=== PATIENT | female | born 1960 | race African-American/Black ===

== ENCOUNTER 2020-03-08 15:45 | Emergency (ER) | payer OTHER ==
[2020-03-08 15:49] VITALS: BP 165/82; PULSE 79; TEMP 97; BMI 29.2
== END 2020-03-08 16:51 | disposition home or self-care (01) ==
LOC: JERFT 15:45
DX: M25.531 Pain in right wrist (principal)
CPT/HCPCS: 73110-TC-RT-FY; 99283-25

== ENCOUNTER 2021-02-03 23:26 | Emergency (ER) | payer OTHER ==
[2021-02-03 23:36] VITALS: TEMP 98; BMI 28.6
[2021-02-04] MEDS ORDERED: ACETAMINOPHEN 1000 MG/100 ML VIAL IVPB ONE (00:19)
[2021-02-04] MEDS ORDERED: ACETAMINOPHEN 500 MG TABLET (FP) PO ONE (00:26)
[2021-02-04] MEDS ORDERED: ACETAMINOPHEN 325 MG TABLET (FP) ONE (00:27)
[2021-02-04] MEDS ORDERED: ACETAMINOPHEN 325 MG TABLET (FP) PO ONE (00:46)
[2021-02-04 01:58] VITALS: BP 176/88; PULSE 62
== END 2021-02-04 02:12 | disposition home or self-care (01) ==
LOC: JER 23:26
DX: G44.099 Other trigeminal autonomic cephalgias (TAC), not intractable (principal)
CPT/HCPCS: 70450-TC; 99284-25

== ENCOUNTER 2021-07-15 17:11 | Emergency (ER) | payer OTHER ==
[2021-07-15 17:38] VITALS: BP 159/90; PULSE 73; TEMP 98.1; BMI 28.1
== END 2021-07-15 20:25 | disposition home or self-care (01) ==
LOC: JERFT 17:11
DX: M79.652 Pain in left thigh (principal)
CPT/HCPCS: 93971-TC; 99284-25

== ENCOUNTER 2022-04-21 14:28 | Inpatient (IN) | payer OTHER ==
[2022-04-21] MEDS ORDERED: PIPERACILLIN/TAZOB 4.5 GM 4.5 GM in DEXTROSE 5%-WATER 100 ML IVPB ONE (15:41)
[2022-04-21] MEDS ORDERED: VANCOMYCIN 1 GM in D5W (PRE-DOCKED) 1,000 MG/250 ML IVPB ONE (15:41)
[2022-04-21] MEDS ORDERED: PIPERACILLIN/TAZOB 4.5 GM 4.5 GM/100 ML BAG IVPB ONE (15:47)
[2022-04-21] MEDS ORDERED: VANCOMYCIN/WATER FOR INJ (PEG) 1,000 MG/200 ML BAG IVPB ONE (16:22)
[2022-04-21 16:43] LABS: BASO % 0.4 % (0-2.0); HEMATOCRIT 35.3 % (32.4-45.2); HEMOGLOBIN 11.5 GM/dL (10.7-15.3); LYMPH % 30.8 % (8-40); MCH 26.3 pg (25.7-33.7); MCHC 32.7 g/dl (32.0-36.0); MEAN CELL VOLUME 80.4 fl (80-96); MEAN PLT VOLUME 8.8 fl (7.5-11.1); MONO % 6.4 % (3.8-10.2); NEUT % 61.4 % (42.8-82.8); PLATELET COUNT 315 10^3/uL (134-434); RBC 4.39 M/mm3 (3.60-5.2); RDW 14.1 % (11.6-15.6); WHITE BLOOD COUNT 9.1 K/mm3 (4.0-10.0)
[2022-04-21 17:10] LABS: ALBUMIN 3.4 g/dl (3.4-5.0); CALCIUM 9.5 mg/dL (8.5-10.1)
[2022-04-21 17:14] LABS: CREATININE 0.9 mg/dL (0.55-1.3)
[2022-04-21 17:15] LABS: BILIRUBIN,TOTAL 0.6 mg/dL (0.2-1); TOT PROT 7.4 g/dl (6.4-8.2)
[2022-04-21] MEDS ORDERED: LISINOPRIL 20 MG TABLET PO ONE (20:11)
[2022-04-21] MEDS ORDERED: ACETAMINOPHEN 500 MG TABLET (FP) PO PRN (21:22)
[2022-04-21] MEDS ORDERED: PIPERACILLIN/TAZOB 3.375 GM 3.375 GM in DEXTROSE 5%-WATER - 50 ML IVPB SCH (23:00)
[2022-04-21] MEDS: ATORVASTATIN CA 20 MG TABLET (FP) PO SCH (23:49)
[2022-04-21] MEDS ORDERED: INSULIN (NOVOLOG) ASPART 100 UNITS/ML 10ML VIAL ONE (23:55)
[2022-04-21] MEDS: INSULIN SLIDING SCALE (NOVOLOG) 1 VIAL SQ SCH (23:56)
[2022-04-22] MEDS ORDERED: PIPERACILLIN/TAZOB 3.375 GM 3.375 GM in DEXTROSE 5%-WATER - 50 ML IVPB SCH (00:01)
[2022-04-22 03:54] VITALS: BMI 29.1
[2022-04-22] MEDS: INSULIN SLIDING SCALE (NOVOLOG) 1 VIAL SQ SCH ×4 (07:00→22:36)
[2022-04-22 08:48] LABS: BASO % 0.4 % (0-2.0); EOS % 1.7 % (0-4.5); HEMATOCRIT 33.2 % (32.4-45.2); HEMOGLOBIN 10.9 GM/dL (10.7-15.3); LYMPH % 38.9 % (8-40); MCH 26.3 pg (25.7-33.7); MCHC 32.7 g/dl (32.0-36.0); MEAN CELL VOLUME 80.3 fl (80-96); MEAN PLT VOLUME 8.7 fl (7.5-11.1); MONO % 8.4 % (3.8-10.2); NEUT % 50.6 % (42.8-82.8); PLATELET COUNT 293 10^3/uL (134-434); RBC 4.14 M/mm3 (3.60-5.2); RDW 14.2 % (11.6-15.6); WHITE BLOOD COUNT 7.7 K/mm3 (4.0-10.0)
[2022-04-22] MEDS: VANCOMYCIN/WATER FOR INJ (PEG) 1,000 MG/200 ML BAG IVPB SCH ×2 (09:47→21:59)
[2022-04-22] MEDS: HYDROCHLOROTHIAZIDE 25 MG TABLET (FP) PO SCH (09:55)
[2022-04-22] MEDS: amLODIPine BESYLATE 5 MG TABLET (FP) PO SCH (09:55)
[2022-04-22] MEDS: ENOXAPARIN NA (PORCINE) 40 MG/0.4 ML DISP.SYRIN SQ SCH (09:55)
[2022-04-22] MEDS: SODIUM CHLORIDE 1,000 ML IV SCH (12:06)
[2022-04-22] MEDS ORDERED: LIDOCAINE HCL 2% (50ML VIAL) SQ ONE (13:45)
[2022-04-22] MEDS ORDERED: morphine SULFATE 4 MG/ML VIAL IVPUSH ONE (14:15)
[2022-04-22] MEDS ORDERED: ACETAMINOPHEN 500 MG TABLET (FP) PO PRN (14:40)
[2022-04-22] MEDS: ATORVASTATIN CA 20 MG TABLET (FP) PO SCH (22:00)
[2022-04-22] MEDS: traMADol HCL 50 MG TABLET PO PRN (22:01)
[2022-04-22] MEDS ORDERED: INSULIN (NOVOLOG) ASPART 100 UNITS/ML 10ML VIAL ONE (22:07)
[2022-04-23] MEDS: INSULIN SLIDING SCALE (NOVOLOG) 1 VIAL SQ SCH ×4 (06:57→21:35)
[2022-04-23] MEDS: VANCOMYCIN/WATER FOR INJ (PEG) 1,000 MG/200 ML BAG IVPB SCH ×2 (08:35→21:21)
[2022-04-23] MEDS: SODIUM CHLORIDE 1,000 ML IV SCH ×2 (08:35→13:20)
[2022-04-23] MEDS: HYDROCHLOROTHIAZIDE 25 MG TABLET (FP) PO SCH (09:12)
[2022-04-23] MEDS: amLODIPine BESYLATE 5 MG TABLET (FP) PO SCH (09:12)
[2022-04-23] MEDS: ENOXAPARIN NA (PORCINE) 40 MG/0.4 ML DISP.SYRIN SQ SCH (09:12)
[2022-04-23] MEDS ORDERED: INSULIN (NOVOLOG) ASPART 100 UNITS/ML 10ML VIAL ONE (11:18)
[2022-04-23] MEDS: POLYETHYLENE GLYCOL (HEALTHYLAX) 3350 17 GM PACKET PO SCH (13:21)
[2022-04-23] MEDS: DOCUSATE SODIUM 100 MG CAPSULE (FP) PO SCH ×2 (13:21→21:22)
[2022-04-23 17:17] LABS: BASO % 0.4 % (0-2.0); EOS % 1.5 % (0-4.5); HEMATOCRIT 35.2 % (32.4-45.2); HEMOGLOBIN 11.6 GM/dL (10.7-15.3); LYMPH % 28.4 % (8-40); MCH 25.8 pg (25.7-33.7); MCHC 32.9 g/dl (32.0-36.0); MEAN CELL VOLUME 78.5 fl (80-96); MEAN PLT VOLUME 8.5 fl (7.5-11.1); MONO % 7.9 % (3.8-10.2); NEUT % 61.8 % (42.8-82.8); PLATELET COUNT 328 10^3/uL (134-434); RBC 4.49 M/mm3 (3.60-5.2); RDW 13.8 % (11.6-15.6)
[2022-04-23 17:48] LABS: BLOOD UREA NITROGEN 17.3 mg/dL (7-18)
[2022-04-23 17:49] LABS: ALBUMIN 3.1 g/dl (3.4-5.0)
[2022-04-23 17:51] LABS: CREATININE 0.9 mg/dL (0.55-1.3)
[2022-04-23 17:53] LABS: BILIRUBIN,TOTAL 0.5 mg/dL (0.2-1); TOT PROT 7.2 g/dl (6.4-8.2)
[2022-04-23] MEDS ORDERED: POTASSIUM CHLORIDE ORAL LIQUID 20 MEQ/15 ML PO ONE (17:54)
[2022-04-23 18:11] LABS: MAGNESIUM 1.8 mg/dL (1.8-2.4)
[2022-04-23] MEDS: traMADol HCL 50 MG TABLET PO PRN (18:33)
[2022-04-23] MEDS: ATORVASTATIN CA 20 MG TABLET (FP) PO SCH (21:22)
[2022-04-24] MEDS: SODIUM CHLORIDE 1,000 ML IV SCH ×3 (00:28→16:13)
[2022-04-24] MEDS: traMADol HCL 50 MG TABLET PO PRN ×2 (01:39→06:32)
[2022-04-24] MEDS: DOCUSATE SODIUM 100 MG CAPSULE (FP) PO SCH ×3 (06:25→21:26)
[2022-04-24] MEDS: INSULIN SLIDING SCALE (NOVOLOG) 1 VIAL SQ SCH ×4 (06:31→21:35)
[2022-04-24] MEDS ORDERED: VANCOMYCIN/WATER 1250 MG 1,250 MG/250 ML BAG IVPB SCH (09:30)
[2022-04-24] MEDS ORDERED: oxyCODONE HCL 5 MG TABLET PO PRN ×3 (09:43→13:25)
[2022-04-24] MEDS: amLODIPine BESYLATE 5 MG TABLET (FP) PO SCH (10:07)
[2022-04-24] MEDS: HYDROCHLOROTHIAZIDE 25 MG TABLET (FP) PO SCH (10:07)
[2022-04-24] MEDS: ENOXAPARIN NA (PORCINE) 40 MG/0.4 ML DISP.SYRIN SQ SCH (10:08)
[2022-04-24] MEDS: SODIUM CHLORIDE IVPB SCH (11:34)
[2022-04-24] MEDS: DAPTOMYCIN IVPB SCH (11:34)
[2022-04-24] MEDS: POLYETHYLENE GLYCOL (HEALTHYLAX) 3350 17 GM PACKET PO SCH (12:08)
[2022-04-24] MEDS ORDERED: GABAPENTIN 100 MG CAPSULE PO ONE (15:01)
[2022-04-24] MEDS ORDERED: INSULIN (NOVOLOG) ASPART 100 UNITS/ML 10ML VIAL ONE ×2 (16:47→21:14)
[2022-04-24] MEDS: ACETAMINOPHEN 325 MG TABLET (FP) PO SCH (18:04)
[2022-04-25] MEDS: ACETAMINOPHEN 325 MG TABLET (FP) PO SCH ×4 (00:35→19:01)
[2022-04-25] MEDS: SODIUM CHLORIDE 1,000 ML IV SCH (05:40)
[2022-04-25] MEDS: DOCUSATE SODIUM 100 MG CAPSULE (FP) PO SCH ×3 (06:17→22:23)
[2022-04-25] MEDS: INSULIN SLIDING SCALE (NOVOLOG) 1 VIAL SQ SCH ×4 (06:23→22:23)
[2022-04-25] MEDS ORDERED: SODIUM CHLORIDE 1,000 ML IV SCH (08:50)
[2022-04-25] MEDS: ENOXAPARIN NA (PORCINE) 40 MG/0.4 ML DISP.SYRIN SQ SCH (09:54)
[2022-04-25] MEDS: SODIUM CHLORIDE IVPB SCH (09:54)
[2022-04-25] MEDS: DAPTOMYCIN IVPB SCH (09:54)
[2022-04-25] MEDS: HYDROCHLOROTHIAZIDE 25 MG TABLET (FP) PO SCH (09:54)
[2022-04-25] MEDS: amLODIPine BESYLATE 10 MG TABLET (FP) PO SCH (09:54)
[2022-04-25 10:51] LABS: BASO % 0.3 % (0-2.0); EOS % 0.4 % (0-4.5); HEMATOCRIT 32.5 % (32.4-45.2); HEMOGLOBIN 10.7 GM/dL (10.7-15.3); LYMPH % 19.8 % (8-40); MCH 25.4 pg (25.7-33.7); MEAN CELL VOLUME 77.2 fl (80-96); MEAN PLT VOLUME 8.6 fl (7.5-11.1); MONO % 10.5 % (3.8-10.2); PLATELET COUNT 314 10^3/uL (134-434); RBC 4.21 M/mm3 (3.60-5.2); RDW 13.8 % (11.6-15.6); WHITE BLOOD COUNT 9.7 K/mm3 (4.0-10.0)
[2022-04-25 11:56] LABS: CALCIUM 8.3 mg/dL (8.5-10.1)
[2022-04-25 11:57] LABS: ALBUMIN 2.7 g/dl (3.4-5.0); BLOOD UREA NITROGEN 8.4 mg/dL (7-18); CO2 26 mmol/L (21-32); GLUCOSE,RANDOM 153 mg/dL (74-106)
[2022-04-25 12:01] LABS: CREATININE 0.6 mg/dL (0.55-1.3); SGOT/AST 12 U/L (15-37); SGPT/ALT 9 U/L (13-61)
[2022-04-25 12:02] LABS: TOT PROT 6.5 g/dl (6.4-8.2)
[2022-04-25 12:03] LABS: ALK PHOS 54 U/L (45-117); BILIRUBIN,TOTAL 0.8 mg/dL (0.2-1)
[2022-04-25 12:20] LABS: CHLORIDE 103 mmol/L (98-107); SODIUM 138 mmol/L (136-145)
[2022-04-25 12:23] LABS: ANION GAP 9 MMOL/L (8-16)
[2022-04-25] MEDS ORDERED: POTASSIUM CHLORIDE ORAL LIQUID 20 MEQ/15 ML PO ONE (12:25)
[2022-04-25] MEDS: POLYETHYLENE GLYCOL (HEALTHYLAX) 3350 17 GM PACKET PO SCH (14:31)
[2022-04-25] MEDS: GABAPENTIN 100 MG CAPSULE PO SCH (14:31)
[2022-04-25] MEDS: KCL 10 MEQ IVPB 10 MEQ/100 ML INFUS.BAG IVPB SCH ×3 (14:31→22:23)
[2022-04-25] MEDS ORDERED: POTASSIUM CHLORIDE TABS 20 MEQ TABLET.ER (FP) PO ONE (20:50)
[2022-04-26] MEDS: ACETAMINOPHEN 325 MG TABLET (FP) PO SCH ×4 (00:23→17:35)
[2022-04-26] MEDS: KCL 10 MEQ IVPB 10 MEQ/100 ML INFUS.BAG IVPB SCH (00:26)
[2022-04-26] MEDS: INSULIN SLIDING SCALE (NOVOLOG) 1 VIAL SQ SCH ×4 (07:10→22:17)
[2022-04-26] MEDS: DOCUSATE SODIUM 100 MG CAPSULE (FP) PO SCH ×3 (07:23→22:17)
[2022-04-26] MEDS: ENOXAPARIN NA (PORCINE) 40 MG/0.4 ML DISP.SYRIN SQ SCH (09:20)
[2022-04-26] MEDS: GABAPENTIN 100 MG CAPSULE PO SCH (09:20)
[2022-04-26] MEDS: HYDROCHLOROTHIAZIDE 25 MG TABLET (FP) PO SCH (09:20)
[2022-04-26] MEDS: amLODIPine BESYLATE 10 MG TABLET (FP) PO SCH (09:20)
[2022-04-26] MEDS ORDERED: POLYETHYLENE GLYCOL (HEALTHYLAX) 3350 17 GM PACKET PO SCH (10:00)
[2022-04-26] MEDS: DAPTOMYCIN IVPB SCH (11:45)
[2022-04-26] MEDS: SODIUM CHLORIDE IVPB SCH (11:45)
[2022-04-26] MEDS ORDERED: LACTULOSE 20 GM/30 ML UDC (FOR ORAL USE ONLY) PO ONE (11:50)
[2022-04-26 11:52] LABS: BASO % 0.2 % (0-2.0); EOS % 0.6 % (0-4.5); HEMATOCRIT 35.3 % (32.4-45.2); HEMOGLOBIN 11.9 GM/dL (10.7-15.3); LYMPH % 22.7 % (8-40); MCHC 33.6 g/dl (32.0-36.0); MEAN CELL VOLUME 77.3 fl (80-96); MEAN PLT VOLUME 8.4 fl (7.5-11.1); MONO % 7.6 % (3.8-10.2); NEUT % 68.9 % (42.8-82.8); PLATELET COUNT 394 10^3/uL (134-434); RBC 4.57 M/mm3 (3.60-5.2); WHITE BLOOD COUNT 9.3 K/mm3 (4.0-10.0)
[2022-04-26] MEDS ORDERED: INSULIN (NOVOLOG) ASPART 100 UNITS/ML 10ML VIAL ONE (11:53)
[2022-04-26 12:46] LABS: CALCIUM 9.3 mg/dL (8.5-10.1)
[2022-04-26 12:48] LABS: BLOOD UREA NITROGEN 10.6 mg/dL (7-18); MAGNESIUM 2.2 mg/dL (1.8-2.4)
[2022-04-26 12:50] LABS: CREATININE 0.6 mg/dL (0.55-1.3)
[2022-04-26 12:52] LABS: BILIRUBIN,TOTAL 0.6 mg/dL (0.2-1); TOT PROT 7.4 g/dl (6.4-8.2)
[2022-04-26] MEDS: POLYETHYLENE GLYCOL (HEALTHYLAX) 3350 17 GM PACKET PO SCH ×2 (13:24→22:17)
[2022-04-26 23:20] VITALS: RESP 18
[2022-04-27] MEDS: ACETAMINOPHEN 325 MG TABLET (FP) PO SCH ×4 (01:08→19:47)
[2022-04-27] MEDS: POLYETHYLENE GLYCOL (HEALTHYLAX) 3350 17 GM PACKET PO SCH ×3 (06:12→22:11)
[2022-04-27] MEDS: DOCUSATE SODIUM 100 MG CAPSULE (FP) PO SCH ×3 (06:12→22:11)
[2022-04-27] MEDS: INSULIN SLIDING SCALE (NOVOLOG) 1 VIAL SQ SCH ×4 (06:12→22:11)
[2022-04-27 09:07] LABS: BASO % 0.7 % (0-2.0); EOS % 1.6 % (0-4.5); HEMATOCRIT 36.3 % (32.4-45.2); HEMOGLOBIN 11.7 GM/dL (10.7-15.3); LYMPH % 34.3 % (8-40); MCH 25.2 pg (25.7-33.7); MCHC 32.3 g/dl (32.0-36.0); MEAN PLT VOLUME 8.2 fl (7.5-11.1); NEUT % 56.4 % (42.8-82.8); PLATELET COUNT 444 10^3/uL (134-434); RBC 4.65 M/mm3 (3.60-5.2)
[2022-04-27 09:38] LABS: BLOOD UREA NITROGEN 14.4 mg/dL (7-18)
[2022-04-27 09:40] LABS: CREATININE 0.7 mg/dL (0.55-1.3)
[2022-04-27 09:42] LABS: ALBUMIN 3.1 g/dl (3.4-5.0)
[2022-04-27 09:44] LABS: CALCIUM 9.8 mg/dL (8.5-10.1)
[2022-04-27 10:07] LABS: BILIRUBIN,TOTAL 1.1 mg/dL (0.2-1)
[2022-04-27] MEDS: ENOXAPARIN NA (PORCINE) 40 MG/0.4 ML DISP.SYRIN SQ SCH (10:23)
[2022-04-27] MEDS: predniSONE 20 MG TABLET (UD) PO SCH (11:12)
[2022-04-27] MEDS: GABAPENTIN 100 MG CAPSULE PO SCH (11:12)
[2022-04-27] MEDS: HYDROCHLOROTHIAZIDE 25 MG TABLET (FP) PO SCH (11:13)
[2022-04-27] MEDS: amLODIPine BESYLATE 10 MG TABLET (FP) PO SCH (11:14)
[2022-04-27] MEDS ORDERED: INSULIN (NOVOLOG) ASPART 100 UNITS/ML 10ML VIAL ONE ×2 (11:43→17:27)
[2022-04-27] MEDS: SODIUM CHLORIDE IVPB SCH (13:36)
[2022-04-27] MEDS: DAPTOMYCIN IVPB SCH (13:36)
[2022-04-28] MEDS: ACETAMINOPHEN 325 MG TABLET (FP) PO SCH ×3 (00:40→11:56)
[2022-04-28] MEDS: POLYETHYLENE GLYCOL (HEALTHYLAX) 3350 17 GM PACKET PO SCH ×2 (06:57→15:04)
[2022-04-28] MEDS: DOCUSATE SODIUM 100 MG CAPSULE (FP) PO SCH ×2 (06:58→15:04)
[2022-04-28] MEDS: INSULIN SLIDING SCALE (NOVOLOG) 1 VIAL SQ SCH ×2 (06:59→12:15)
[2022-04-28] MEDS: ENOXAPARIN NA (PORCINE) 40 MG/0.4 ML DISP.SYRIN SQ SCH (09:50)
[2022-04-28] MEDS ORDERED: DAPTOMYCIN 500 MG in SODIUM CHLORIDE 50 ML IVPB SCH (10:00)
[2022-04-28] MEDS: amLODIPine BESYLATE 10 MG TABLET (FP) PO SCH (10:02)
[2022-04-28] MEDS: predniSONE 20 MG TABLET (UD) PO SCH (10:02)
[2022-04-28] MEDS: GABAPENTIN 100 MG CAPSULE PO SCH (10:02)
[2022-04-28] MEDS: HYDROCHLOROTHIAZIDE 25 MG TABLET (FP) PO SCH (10:02)
[2022-04-28] MEDS ORDERED: LACTOBACILLUS ACIDOPHILUS 1 TABLET PO SCH (11:30)
[2022-04-28] MEDS ORDERED: INSULIN (NOVOLOG) ASPART 100 UNITS/ML 10ML VIAL ONE (12:11)
[2022-04-28] MEDS ORDERED: CLINDAMYCIN HCL 150 MG CAPSULE (FP) PO SCH (14:00)
[2022-04-28 15:05] VITALS: BP 124/75; PULSE 66; TEMP 97.4
[2022-04-29] MEDS ORDERED: MULTIVITAMINS THER W-MINERALS COMBO TABLET (FP) PO SCH (10:00)
== END 2022-04-28 16:11 | disposition home or self-care (01) | DRG 603 ==
LOC: JER 14:28 → JERBED 16:21 → OBSVTOIN 18:00 → J8W 20:31
PROVIDERS: ADMIT Internal Medicine; ATTEND Nurse Practitioner Acute Care
PROC: 0X960ZZ Drainage of Right Upper Extremity, Open Approach (ICD-10-PCS; principal; 2022-04-22)
DX: L02.511 Cutaneous abscess of right hand (principal); L03.113 Cellulitis of right upper limb; G90.511 Complex regional pain syndrome I of right upper limb; I10 Essential (primary) hypertension; E11.9 Type 2 diabetes mellitus without complications; B95.62 Methicillin resistant Staphylococcus aureus infection as the cause of diseases classified elsewhere; M65.9 Synovitis and tenosynovitis, unspecified
CPT/HCPCS: 0241U-QW; 36415; 73090-TC-RT-FY; 73219-TC; 76882-TC-RT-FY; 80053; 82550; 82962; 83036; 83735; 84132; 85025; 85027; 85651; 86140; 87040; 87070; 87075; 87186; 87205; 93005; 93010; 97116-GP; 97161-GP; 99285-25; A9579; G0378; G0480; J0878

== ENCOUNTER 2023-02-18 09:40 | Emergency (ER) | payer OTHER ==
[2023-02-18 09:44] VITALS: BP 157/70; PULSE 62; RESP 18; TEMP 97.9; BMI 29.9
[2023-02-18] MEDS ORDERED: IBUPROFEN 400 MG TABLET (FP) PO ONE ×2 (11:05→11:50)
== END 2023-02-18 13:11 | disposition home or self-care (01) ==
LOC: JER 09:40 → JERFT 09:40
DX: S80.912A Unspecified superficial injury of left knee, initial encounter (principal); M25.561 Pain in right knee; M25.562 Pain in left knee; W19.XXXA Unspecified fall, initial encounter; Y99.0 Civilian activity done for income or pay
CPT/HCPCS: 73562-TC-LT-FY; 99283-25

== ENCOUNTER → 2024-06-19 | Day surgery (SDC) | payer OTHER | END | disposition home or self-care (01) | LOC: JRADUS-SUR 07:55 | PROVIDERS: ATTEND Internal Medicine Nephrology | PROC: 0HBU3ZX Excision of Left Breast, Percutaneous Approach, Diagnostic (ICD-10-PCS; principal; 2024-06-19) | DX: N60.32 Fibrosclerosis of left breast (principal) | CPT/HCPCS: 19083; A4648; 76942-TC; 77065-TC; 87899; 88305-TC ==